=== PATIENT | female | born 1950 | race Caucasian/White ===

== ENCOUNTER 2017-04-15 01:22 | Inpatient (IN) | payer OTHER ==
[~2017-04-15] VITALS: Ht 160 cm; Wt 70.6 kg
[~2017-04-15 01:22] MED LIST: ADULT LOW DOSE81 M1; HYDROCHLOROTH12.5 M3 PO; LEXAPRO5 MG PO; LISINOPRIL40 MG PO; METOPROLOL SUCC25 MG PO
[2017-04-15 02:00] LABS: HEMATOCRIT 39.2 % (36.0-46.0); MCH 29.9 PG (29.0-34.0); MCHC 33.4 G/DL (30.0-36.0); MCV 89.5 FL (83-99); MEAN PLAT.VOLUME 9.2 uM^3 (9.5-12.4); PLATELET COUNT 336 K/uL (156-360); RBC DIS.WIDTH-SD 42.6 % (39-53); RED BLOOD COUNT 4.38 M/uL (3.80-5.20); WHITE BLOOD COUNT 14.2 K/uL (4.1-10.2)
[2017-04-15 02:11] LABS: CHLORIDE 105 mEq/L (99-109); POTASSIUM 3.2 mEq/L (3.7-5.4); SODIUM 142 mEq/L (136-147)
[2017-04-15 02:13] LABS: GLUCOSE 162 mg/dL (70-99)
[2017-04-15 02:14] LABS: ANION GAP 13 MEQ/L (2-14)
[2017-04-15 02:15] LABS: TOTAL BILIRUBIN 0.4 mg/dL (0.0-1.0)
[2017-04-15 02:17] LABS: ALKALINE PHOSPHATASE 76 IU/L (3-129); GFR ESTIMATE (CALCULATED) > 59 mL/min/
[2017-04-15 02:18] LABS: UREA NITROGEN (BUN) 12 mg/dL (9-23)
[2017-04-15 02:20] LABS: LIPASE 14 U/L (1.0-51.0)
[2017-04-15 04:53] LABS: ADD MIUA? NO; BILIRUBIN NEGATIVE; BLOOD NEGATIVE; COLOR STRAW ((YELLOW)); GLUCOSE (STRIP) NEGATIVE; KETONES 5; LEUKOCYTES NEGATIVE; NITRITE NEGATIVE; PROTEIN (STRIP) NEGATIVE; UCUL ADDED? NO; UROBILINOGEN 0.2 MG/DL (0.2-1.0)
[2017-04-15 08:00] VITALS: BP 120/67
[2017-04-15 16:00] VITALS: BP 91/55
[2017-04-15] MEDS ORDERED: LISINOPRIL20 MG PO (16:05)
[2017-04-15] MEDS ORDERED: PRAVASTATIN SOD10 MG PO (16:06)
[2017-04-15] MEDS ORDERED: LO-DOSE ASPIRIN81 M2 PO (16:06)
[2017-04-15] MEDS ORDERED: VENTOLIN HFA18 GM IH (16:07)
[2017-04-15] MEDS ORDERED: FLONASE16 G1 BOTH NARES (16:07)
[2017-04-15] MEDS ORDERED: NITROSTAT0.4 MG SL (16:07)
[2017-04-15] MEDS ORDERED: DAILY VALUE1 EACH PO (16:08)
[2017-04-15] MEDS ORDERED: VITAMIN D2000 UNIT PO (16:08)
[2017-04-15 18:51] VITALS: BP 107/57
[2017-04-15 23:25] VITALS: BP 102/61
[2017-04-16 03:41] VITALS: BP 106/62
[2017-04-16 06:55] VITALS: BP 135/79
[2017-04-16 07:11] LABS: HEMATOCRIT 31.9 % (36.0-46.0); MCH 29.6 PG (29.0-34.0); MCHC 31.7 G/DL (30.0-36.0); MEAN PLAT.VOLUME 9.8 uM^3 (9.5-12.4); PLATELET COUNT 266 K/uL (156-360); RBC DIS.WIDTH-CV 13.5 % (11.8-14.6); RBC DIS.WIDTH-SD 46.4 % (39-53); WHITE BLOOD COUNT 11.8 K/uL (4.1-10.2)
[2017-04-16 07:12] LABS: MCV 93.5 FL (83-99); RED BLOOD COUNT 3.41 M/uL (3.80-5.20)
[2017-04-16 11:35] VITALS: BP 114/63
[2017-04-16 15:35] VITALS: BP 132/79
[2017-04-16 19:04] VITALS: BP 144/70
[2017-04-16 23:13] VITALS: BP 119/64
[2017-04-17 03:10] VITALS: BP 140/74
[2017-04-17 08:10] VITALS: BP 138/92
[2017-04-17] MEDS ORDERED: ULTRAM50 MG PO (09:02)
== END 2017-04-17 15:47 | disposition home or self-care (01) | DRG 337 ==
LOC: EME → EDBD 01:22 → EME 01:22 → SDC 05:22 → EME 05:22 → 2EAST 06:38 → 2SOUTH 06:38 → 2EAST 07:59
PROVIDERS: Emergency Medicine; Surgery
PROC: 0DNL0ZZ Release Transverse Colon, Open Approach (ICD-10-PCS; principal; 2017-04-15)
DX: K56.5 Intestinal adhesions [bands] with obstruction (postinfection) (principal); I10 Essential (primary) hypertension; E87.6 Hypokalemia; F43.10 Post-traumatic stress disorder, unspecified; J45.909 Unspecified asthma, uncomplicated
CPT/HCPCS: 74177; 80053; 81003; 83605; 83690; 85027; 93005; 99281; 99285; J0131; J0330; J1100; J1200; J1335; J1650; J1885; J2405; J2710; J2765; J2930; J3010; J3480; J7030; J7042; J7050